=== PATIENT | male | born 2005 | race Two or more races ===

== ENCOUNTER 2024-02-08 20:13 | Emergency (ER) | payer MEDICAID, OTHER ==
[~2024-02-08] VITALS: Ht 167.6 cm; Wt 69.2 kg
[2024-02-08 21:40] VITALS: BP 126/77; PULSE 102; RESP 14; TEMP 99.3; O2SAT 100
[2024-02-09] MEDS: TETANUS-DIPTH-ACEL PERTUSSIS 0.5ML SYR Tdap IM ONE (02:48)
== END 2024-02-09 03:06 | disposition home or self-care (01) ==
LOC: ER 20:13
DX: S61.412A Laceration without foreign body of left hand, initial encounter (principal); W45.8XXA Other foreign body or object entering through skin, initial encounter; Y93.89 Activity, other specified; Y92.89 Other specified places as the place of occurrence of the external cause; Y99.8 Other external cause status
CPT/HCPCS: 12002; 90471; 90715